=== PATIENT | female | born 1955 | race Caucasian/White ===

== ENCOUNTER 2024-05-20 08:03 | Inpatient (IN) | payer OTHER, MEDICARE ==
[~2024-05-20] VITALS: Ht 162.6 cm; Wt 92.8 kg
[2024-05-20] VITALS (7 sets, daily range): BP systolic 115–166; BP diastolic 70–106; PULSE 101–138; RESP 18–27; TEMP 97.1–98.4; O2SAT 93–100
[2024-05-20] MEDS: LORazepam 2MG/ML-1ML VIAL ONE (08:10)
[2024-05-20] MEDS: LEVALBUTEROL HCL 1.25 MG/3 ML NEB NEB ONE (08:10)
[2024-05-20] MEDS: IPRATROPIUM BROM 0.5 MG/2.5ML INH SOL NEB ONE (08:10)
[2024-05-20] MEDS: LORazepam 2MG/ML-1ML VIAL IV ONE (08:11)
[2024-05-20] MEDS: LEVALBUTEROL HCL 1.25 MG/3 ML NEB ONE (08:12)
[2024-05-20] MEDS: IPRATROPIUM BROM 0.5 MG/2.5ML INH SOL ONE (08:12)
[2024-05-20 08:21] LABS: Base Excess -9.6 mmol/L (-2.0-2.0)
[2024-05-20] MEDS: FUROSEMIDE 40 MG/4 ML VIAL IV ONE ×2 (08:33→15:11)
[2024-05-20] MEDS: methylPREDNISolone SOD SUCC 125 MG/2 ML VL IV ONE (08:34)
[2024-05-20 08:44] LABS: Basophils # (auto) 0.1 10 ^3/uL (0-0.2); Basophils % (auto) 0.5 % (0.0-2.0); Eosinophils # (auto) 0 10 ^3/uL (0-0.8); Eosinophils % (auto) 0.1 % (0.0-7.0); Hematocrit 41.2 % (36.0-46.0); Hemoglobin 13.2 g/dL (12.2-16.2); Lymphocytes % (auto) 7.4 % (10.0-50.0); Mean Corpuscular Hemoglobin 28.5 pg (28.0-32.0); Mean Corpuscular Volume 89.3 fL (80.0-100.0); Monocytes # (auto) 0.5 10 ^3/uL (0-1.3); Monocytes % (auto) 4.2 % (0.0-12.0); Neutrophils # (auto) 11.5 10 ^3/uL (1.6-8.6); Neutrophils % (auto) 87.8 % (37.0-80.0); Red Blood Cells 4.61 10^6/uL (4.0-5.20); Red Cell Distribution Width 18.3 % (11.8-14.3)
[2024-05-20] MEDS: MAGNESIUM SULFATE 1GM/100ML 100 ML IV ONE (08:45)
[2024-05-20 08:56] LABS: Chloride 112 mmol/L (98-107); Potassium 4.3 mmol/L (3.5-5.1); Sodium 144 mmol/L (136-145)
[2024-05-20 08:57] LABS: Anion Gap 13 (5-15); Carbon Dioxide 19 mmol/L (20-30)
[2024-05-20 09:02] LABS: BUN/Creatinine Ratio 23.3 (10.0-20.0); Blood Urea Nitrogen 21 mg/dL (9-23); Glucose 147 mg/dL (74-106)
[2024-05-20 09:33] LABS: Base Excess -5.8 mmol/L (-2.0-2.0)
[2024-05-20 10:12] LABS: Urine Bacteria None Seen /hpf (None Seen)
[2024-05-20 10:27] LABS: Urine Blood TRACE /uL (Negative); Urine Clarity Clear (Clear); Urine Color Light-Yellow (Yellow); Urine Mucus FEW (None Seen); Urine Protein, UAD TRACE (Negative); Urine Specific Gravity 1.008 (1.001-1.035); Urine Urobilinogen Normal (Negative); Urine WBC 1 /hpf (0 - 5)
[2024-05-20] MEDS ORDERED: HYDROmorphone HCL 2 MG/ML VL/or syr IV PRN (14:45)
[2024-05-20] MEDS ORDERED: ACETAMINOPHEN 325 MG TAB PO PRN (14:45)
[2024-05-20] MEDS ORDERED: ONDANSETRON HCL 4 MG/2 ML VIAL IV PRN (14:45)
[2024-05-20] MEDS ORDERED: DOCUSATE SOD 100 MG CAP PO PRN (14:45)
[2024-05-20] MEDS: ENOXAPARIN SOD 40 MG/0.4 ML SYRINGE SC SCH (15:11)
[2024-05-20] MEDS: FUROSEMIDE 40 MG/4 ML VIAL IV SCH (23:55)
[2024-05-20] MEDS: SODIUM CHLOR 0.9% PF (SALINE LOCK) 10ML VIAL/SYR IV SCH (23:55)
[2024-05-21] VITALS (10 sets, daily range): BP systolic 97–128; BP diastolic 62–74; PULSE 64–120; RESP 16–18; TEMP 97.9–98.5; O2SAT 93–100
[2024-05-21 09:10] LABS: Basophils # (auto) 0 10 ^3/uL (0-0.2); Basophils % (auto) 0.3 % (0.0-2.0); Eosinophils # (auto) 0 10 ^3/uL (0-0.8); Eosinophils % (auto) 0.3 % (0.0-7.0); Hematocrit 38.1 % (36.0-46.0); Hemoglobin 12.7 g/dL (12.2-16.2); Lymphocytes # (auto) 1.2 10 ^3/uL (0.4-5.4); Lymphocytes % (auto) 12.1 % (10.0-50.0); Mean Corpuscular Hemoglobin 28.4 pg (28.0-32.0); Mean Corpuscular Hgb Conc. 33.2 g/dL (32.0-36.0); Mean Corpuscular Volume 85.6 fL (80.0-100.0); Monocytes # (auto) 0.8 10 ^3/uL (0-1.3); Monocytes % (auto) 7.8 % (0.0-12.0); Neutrophils # (auto) 7.9 10 ^3/uL (1.6-8.6); Neutrophils % (auto) 79.5 % (37.0-80.0); Nucleated Red Blood Cells % 0.1 %; Red Blood Cells 4.45 10^6/uL (4.0-5.20); Red Cell Distribution Width 17.1 % (11.8-14.3); White Blood Cell 9.9 10^3/uL (4.4-10.8)
[2024-05-21 09:27] LABS: Alanine Aminotransferase 28 U/L (7-40); Albumin 3.4 g/dL (3.2-4.8); Alkaline Phosphatase 114 U/L (46-116); Anion Gap 7 (5-15); Aspartate Aminotransferase 22 U/L (13-40); BUN/Creatinine Ratio 20.9 (10.0-20.0); Blood Urea Nitrogen 18 mg/dL (9-23); Carbon Dioxide 28 mmol/L (20-30); Chloride 109 mmol/L (98-107); Glucose 96 mg/dL (74-106); Potassium 3.4 mmol/L (3.5-5.1); Sodium 144 mmol/L (136-145)
[2024-05-21 09:29] LABS: Bilirubin, Total 0.5 mg/dL (0.2-1.0); Total Protein 6.2 g/dL (5.7-8.2)
[2024-05-21] MEDS: dilTIAZem 25 MG/5 ML VIAL IV PRN (09:41)
[2024-05-21] MEDS: POTASSIUM EFFERVESENT TAB 25 MEQ PO ONE (13:26)
[2024-05-21] MEDS: CARVEDILOL 3.125 MG TAB PO SCH (21:50)
[2024-05-22] VITALS (9 sets, daily range): BP systolic 98–122; BP diastolic 65–73; PULSE 71–121; RESP 14–18; TEMP 97.6–98.5; O2SAT 91–98
[2024-05-22] MEDS: ENALAPRIL MALEATE 2.5 MG TAB PO SCH (10:00)
[2024-05-22 12:15] LABS: Chloride 104 mmol/L (98-107); Potassium 3.3 mmol/L (3.5-5.1); Sodium 142 mmol/L (136-145)
[2024-05-22 12:16] LABS: Anion Gap 4 (5-15); Carbon Dioxide 34 mmol/L (20-30)
[2024-05-22 12:17] LABS: Calcium 9.1 mg/dL (8.7-10.4)
[2024-05-22 12:21] LABS: Blood Urea Nitrogen 19 mg/dL (9-23); Glucose 91 mg/dL (74-106)
[2024-05-22] MEDS: POTASSIUM EFFERVESENT TAB 25 MEQ PO ONE (13:47)
[2024-05-22] MEDS ORDERED: FURO1TAB31 PO (18:53)
[2024-05-22] MEDS ORDERED: CARV-214 PO (18:53)
[2024-05-22] MEDS ORDERED: ENAL1TAB42 PO (18:53)
[2024-05-22] MEDS ORDERED: POTA15TA12 PO (18:54)
[2024-05-23 01:00] VITALS: BP 107/71; PULSE 116; RESP 18; O2SAT 96
[2024-05-23 05:00] VITALS: BP 111/74; PULSE 97; RESP 16; TEMP 98.6; O2SAT 96
[2024-05-23 08:00] VITALS: PULSE 116; O2SAT 98
[2024-05-23 09:00] VITALS: BP 139/84; PULSE 118; RESP 16; TEMP 97.8; O2SAT 95
[2024-05-23 11:16] VITALS: BP 139/89; PULSE 89; TEMP 36.6
== END 2024-05-23 11:50 | disposition home health service (06) | DRG 291 ==
LOC: ER 08:03 → EDBD 08:03 → TELE 14:40 → TELE-WESTW 21:55
PROVIDERS: ADMIT Internal Medicine; ATTEND Internal Medicine
PROC: 5A09357 Assistance with Respiratory Ventilation, Less than 24 Consecutive Hours, Continuous Positive Airway Pressure (ICD-10-PCS; principal; 2024-05-20)
DX: I11.0 Hypertensive heart disease with heart failure (principal); I50.43 Acute on chronic combined systolic (congestive) and diastolic (congestive) heart failure; J96.01 Acute respiratory failure with hypoxia; J96.02 Acute respiratory failure with hypercapnia; E87.29 Other acidosis; J98.11 Atelectasis; E66.01 Morbid (severe) obesity due to excess calories; E87.6 Hypokalemia; I27.20 Pulmonary hypertension, unspecified; I42.9 Cardiomyopathy, unspecified; Z68.35 Body mass index [BMI] 35.0-35.9, adult; Z83.3 Family history of diabetes mellitus; Z82.49 Family history of ischemic heart disease and other diseases of the circulatory system; Z79.899 Other long term (current) drug therapy
CPT/HCPCS: 36415; 36600; 71045; 80048; 80053; 81001; 82805; 83880; 84484; 85025; 93005; 93306; 94640; 94660; 99291; G0378